=== PATIENT | male | born 1975 | race African-American/Black ===

== ENCOUNTER 2023-10-16 11:24 | Emergency (ER) | payer OTHER, BC ==
[2023-10-16 13:15] LABS: #Monocytes 0.4 10x3/uL (0.0-1.1); #Neutrophils 1.8 10x3/uL (1.5-8.4); %Basophils 0.8 % (0.0-2.0); %Eosinophils 0.6 % (0.0-6.0); %Lymphocytes 54.7 % (18.0-47.0); %Monocytes 7.1 % (0.0-10.0); %Neutrophils 36.6 % (40.0-75.0); Hematocrit 48.4 % (38.8-50.0); Hemoglobin 16.7 g/dL (13.5-17.5); Mean Corpuscular HGB CONC 34.5 g/dL (32.0-36.0); Mean Corpuscular Hemoglobin 30.4 pg (27.0-33.0); Mean Platelet Volume 8.9 fl (7.4-10.4); Platelet Count 294 10x3/uL (150-450); RBC Distribution Width 12.7 % (11.5-14.5); White Blood Cell (WBC) Count 4.9 10x3/uL (3.5-10.5)
[2023-10-16] MEDS ORDERED: Dicyclomine 20 MG/2 ML VIAL ONE (13:17)
[2023-10-16] MEDS ORDERED: Ondansetron ODT 4 MG TAB ONE (13:17)
[2023-10-16 13:36] LABS: ALT (SGPT) 36 U/L (8-55); AST (SGOT) 21 U/L (5-34); Albumin 4.4 g/dL (3.5-5.0); Alkaline Phosphatase 74 U/L (40-110); Anion Gap 12 mmol/L (10-20); BUN (Urea Nitrogen) 10 mg/dL (8.9-20.6); Bilirubin, Total 0.4 mg/dL (0.2-1.2); Calc. Creatinine Clearance 0 mL/min (70-130); Carbon Dioxide 23 mmol/L (22-29); Chloride 110 mmol/L (98-107); Estimated GFR 110; Globulin 3.2 g/dL (2.4-3.5); Glucose 112 mg/dL (70-105); Potassium 3.4 mmol/L (3.5-5.1); Protein, Total 7.6 g/dL (6.0-8.3); Sodium 142 mmol/L (136-145)
[2023-10-16 14:30] LABS: Bilirubin Neg (Negative); Blood, Urine Negative (Negative); Clarity Slightly Cloudy (Clear); Glucose, Urine (Dipstick) >=1000 mg/dL (Negative); Ketone, Urine Negative (Negative); Leukocyte Negative (Negative); Nitrite Negative (Negative); Protein, Urine (Dipstick) 30 mg/dl (Neg-Trace); Specific Gravity, Urine 1.015 (1.005-1.030)
[2023-10-16 15:41] LABS: RBC/HPF 0-3 HPF (0-3)
[2023-10-16 15:42] LABS: Bacteria/HPF Rare-Few HPF (None Seen); CAUTI Indications for Culture Dysuria,urgency,freq; Squamous Epithelial 0-3 HPF (0-3); Transitional Epithelial 0-3 HPF (None Seen); WBC/HPF 0-3 HPF (0-3)
[2023-10-16 15:43] LABS: Urine Culture Reflex No No
== END 2023-10-16 15:14 | disposition home or self-care (01) ==
LOC: CSHERS 11:24
DX: R11.2 Nausea with vomiting, unspecified (principal); R19.7 Diarrhea, unspecified
CPT/HCPCS: 80053; 81001; 83735; 85025; 99284; Q0162

== ENCOUNTER 2024-05-16 14:52 | Emergency (ER) | payer BC, OTHER ==
[2024-05-16] MEDS ORDERED: Ondansetron ODT 4 MG TAB ONE (15:17)
[2024-05-16 16:00] LABS: #Basophils 0.02 10x3/uL (0.0-0.2); #Eosinophils 0.06 10x3/uL (0.0-0.5); #Monocytes 0.41 10x3/uL (0.0-1.1); #Neutrophils 1.98 10x3/uL (1.5-8.4); %Basophils 0.3 % (0.0-2.0); %Lymphocytes 59.4 % (18.0-47.0); %Monocytes 6.7 % (0.0-10.0); %Neutrophils 32.4 % (40.0-75.0); Hematocrit 43.8 % (38.8-50.0); Hemoglobin 15.1 g/dL (13.5-17.5); Mean Corpuscular HGB CONC 34.5 g/dL (32.0-36.0); Mean Corpuscular Hemoglobin 30.5 pg (27.0-33.0); Mean Corpuscular Volume 88.5 fL (81.2-95.1); Mean Platelet Volume 9.1 fL (7.4-10.4); Platelet Count 298 10x3/uL (150-450); RBC Distribution Width 12.9 % (11.5-14.5); Red Blood Cell (RBC) Count 4.95 10x6/uL (4.32-5.72); White Blood Cell (WBC) Count 6.1 10x3/uL (3.5-10.5)
[2024-05-16 16:01] LABS: ALT (SGPT) 21 U/L (8-55); AST (SGOT) 19 U/L (5-34); Alkaline Phosphatase 73 U/L (40-110); Anion Gap 13 mmol/L (10-20); BUN (Urea Nitrogen) 16 mg/dL (8.9-20.6); Bilirubin, Total 0.3 mg/dL (0.2-1.2); Calc. Creatinine Clearance 0 mL/min (70-130); Carbon Dioxide 19 mmol/L (22-29); Chloride 109 mmol/L (98-107); Estimated GFR 101; Globulin 3.1 g/dL (2.4-3.5); Glucose 198 mg/dL (70-105); Lipase 46 U/L (8-78); Potassium 3.6 mmol/L (3.5-5.1); Protein, Total 7.1 g/dL (6.0-8.3); Sodium 137 mmol/L (136-145)
== END 2024-05-16 16:20 | disposition home or self-care (01) ==
LOC: CSHERS 14:52
DX: R11.0 Nausea (principal); R19.7 Diarrhea, unspecified; T38.3X5A Adverse effect of insulin and oral hypoglycemic [antidiabetic] drugs, initial encounter; E11.9 Type 2 diabetes mellitus without complications; I10 Essential (primary) hypertension
CPT/HCPCS: 80053; 83690; 85025; 99284; Q0162

== ENCOUNTER 2024-06-24 18:25 | Emergency (ER) | payer OTHER ==
[2024-06-24] MEDS ORDERED: Ibuprofen 200 MG TAB ONE (19:29)
[2024-06-24] MEDS ORDERED: Acetaminophen 500 MG TAB ONE (19:29)
== END 2024-06-24 19:59 | disposition home or self-care (01) ==
LOC: CSHERS 18:25
DX: S39.012A Strain of muscle, fascia and tendon of lower back, initial encounter (principal); I10 Essential (primary) hypertension; E11.9 Type 2 diabetes mellitus without complications; Z79.84 Long term (current) use of oral hypoglycemic drugs; Z79.899 Other long term (current) drug therapy
CPT/HCPCS: 99283